=== PATIENT | male | born 1975 | race Native Hawaiian/Other Pacific Islander ===

== ENCOUNTER 2017-07-13 20:08 | Emergency (ER) | payer OTHER ==
[~2017-07-13] VITALS: Ht 185.4 cm; Wt 95.3 kg
[2017-07-13 20:34] LABS: PLATELET COUNT 119 K/uL (142-355)
[2017-07-13 20:53] LABS: POTASSIUM 4.2 mmol/L (3.6-5.2)
[2017-07-14] MEDS ORDERED: ONDA4TAB3 PO (00:50)
[2017-07-14] MEDS ORDERED: KETO10TA34 PO (00:50)
[2017-07-14 01:03] VITALS: BP 102/65; TEMP 98.1
== END 2017-07-14 01:00 | disposition home or self-care (01) ==
LOC: ED 20:08
DX: R10.11 Right upper quadrant pain (principal); R00.0 Tachycardia, unspecified
CPT/HCPCS: 36415; 80053; 85027; 96361; 96365; 96374; 96375; 99284; J2175; J2405; J7120; Q9963